=== PATIENT | male | born 1955 | race Native Hawaiian/Other Pacific Islander ===

== ENCOUNTER 2018-08-23 07:33 | Outpatient (CLI) | payer OTHER | END 2018-08-23 07:34 | disposition home or self-care (01) | LOC: C.LAB 07:33 | DX: E11.65 Type 2 diabetes mellitus with hyperglycemia (principal); E55.9 Vitamin D deficiency, unspecified; E79.0 Hyperuricemia without signs of inflammatory arthritis and tophaceous disease ==